=== PATIENT | female | born 1955 | race Two or more races ===

== ENCOUNTER 2021-08-14 10:28 | Day surgery (SDC) | payer OTHER ==
[~2021-08-14 10:28] MED LIST: SYNTHROID100 MCG PO
== END 2021-08-14 19:50 | disposition home or self-care (01) ==
LOC: CIR.AMB 10:28
PROVIDERS: ATTEND Obstetrics & Gynecology
DX: N84.0 Polyp of corpus uteri (principal); Z20.822 Contact with and (suspected) exposure to COVID-19

== ENCOUNTER 2025-09-27 11:35 | Outpatient (CLI) | payer OTHER | END 2025-09-27 11:36 | disposition home or self-care (01) | LOC: SONOGRAMA 11:35 | PROVIDERS: ATTEND Pathology Anatomic Pathology | DX: D34 Benign neoplasm of thyroid gland (principal); E06.3 Autoimmune thyroiditis; C73 Malignant neoplasm of thyroid gland ==